=== PATIENT | female | born 1970 | race Caucasian/White ===

== ENCOUNTER 2018-04-15 18:58 | Inpatient (IN) | payer MEDICAID ==
[2018-04-15 19:27] VITALS: BMI 37.2
--- NOTE | 2018-04-15 20:25 | ED PDOC ---
Arrival/HPI - General Historian: Patient - History of Present Illness Time/Duration: Other (3 days) Symptom Onset: Gradual Symptom Course: Worsening <Rhianna Orta - Last Filed: 04/15/18 22:31> <Mc Wise - Last Filed: 04/16/18 05:43> - General Chief Complaint: Psychiatric Evaluation Time Seen by Provider: 04/15/18 19:40 - History of Present Illness Narrative History of Present Illness (Text): 04/15/18 20:25 48-year-old female with a history of bipolar disorder presents today with concerns for developing manic episode. Patient states she's noticed pressure speech, lack of sleep. Patient states she's been feeling very on edge. Patient states her doctor 3 years was changed to a new doctor and there's been an adjustment in her medications. Patient states over the past 3 days her symptoms have been drastically worsening. Patient denies suicidal or homicidal ideation. Patient denies chest pain or shortness of breath. Denies fevers or chills. Denies abdominal pain. No other complaints (Rhianna Orta) Past Medical History - Provider Review Nursing Documentation Reviewed: Yes - Travel History Have you recently traveled outside [place] w/in the past 3 mons?: No - Infectious Disease Hx of Infectious Diseases: None - Tetanus Immunization Tetanus Immunization: Unknown - Past Medical History Past Medical History: No Previous - Psychiatric Hx Bipolar Disorder: Yes Hx Depression: No Hx Emotional Abuse: No Hx Physical Abuse: No Hx Substance Use: No - Surgical History Hx Section: Yes Hx Orthopedic Surgery: Yes (left hip as a child) Other/Comment: L knee. fibroids - Anesthesia Hx Anesthesia: Yes Hx Anesthesia Reactions: No Hx Malignant Hyperthermia: No - Suicidal Assessment Feels Threatened In Home Enviroment: No <Rhianna Orta - Last Filed: 04/15/18 22:31> Family/Social History - Physician Review Nursing Documentation Reviewed: Yes Family/Social History: Unknown Family HX Smoking Status: Never Smoked Hx Alcohol Use: Yes Hx Substance Use: No Hx Substance Use Treatment: No <Rhianna Orta - Last Filed: 04/15/18 22:31> Allergies/Home Meds <Rhianna Orta - Last Filed: 04/15/18 22:31> <Mc Wise - Last Filed: 04/16/18 05:43> Allergies/Adverse Reactions: Allergies oxcarbazepine [From Trileptal] Allergy (Verified 04/15/18 19:28) RASH Home Medications: Home Meds Medication Instructions Recorded Confirmed Clonazepam [Klonopin] 1 tab PO QOTHERDAY 04/15/18 04/15/18 Ketorolac Tromethamine [Toradol] 1 tab PO DAILY 04/15/18 04/15/18 Olanzapine [Zyprexa] 1 tab PO DAILY 04/15/18 04/15/18 Review of Systems - Review of Systems Constitutional: Fatigue. absent: Fevers ENT: absent: Sinus Congestion Respiratory: absent: SOB, Cough Cardiovascular: absent: Chest Pain, Palpitations Gastrointestinal: absent: Abdominal Pain, Nausea, Vomiting Genitourinary Female: absent: Dysuria Musculoskeletal: absent: Arthralgias Skin: absent: Rash, Pruritis Neurological: absent: Headache, Dizziness Psychiatric: Anxiety. absent: Depression, Suicidal Ideation <Rhianna Orta - Last Filed: 04/15/18 22:31> Physical Exam Vital Signs Reviewed: Yes Temperature: Afebrile Blood Pressure: Normal Pulse: Regular Respiratory Rate: Normal Appearance: Positive for: Well-Appearing, Non-Toxic, Comfortable Pain Distress: None Mental Status: Positive for: Alert and Oriented X 3 - Systems Exam Head: Present: Atraumatic Mouth: Present: Moist Mucous Membranes Neck: Present: Normal Range of Motion Respiratory/Chest: Present: Clear to Auscultation, Good Air Exchange. No: Respiratory Distress, Accessory Muscle Use Cardiovascular: Present: Regular Rate and Rhythm, Normal S1, S2. No: Murmurs Abdomen: No: Tenderness, Distention, Peritoneal Signs, Rebound, Guarding Upper Extremity: Present: Normal ROM Lower Extremity: Present: Normal ROM Neurological: Present: GCS=15, Speech Normal Skin: Present: Warm, Dry, Normal Color. No: Rashes Psychiatric: Present: Alert, Oriented x 3 <Rhianna Orta - Last Filed: 04/15/18 22:31> Vital Signs Temp Pulse Resp BP Pulse Ox 04/16/18 04:56 78 17 128/78 100 04/16/18 00:35 81 17 138/70 100 04/15/18 18:59 98.7 F 71 18 117/72 97 Medical Decision Making <Rhianna Orta - Last Filed: 04/15/18 22:31> <Mc Wise - Last Filed: 04/16/18 05:43> ED Course and Treatment: 04/15/18 20:27 Patient is nontoxic well-appearing in no distress vital signs are stable. CBC WNL CMP WNL Tylenol WNL Salicylate WNL Alcohol level WNL Urine drug screen wnl UA; trace leukocytes cxr: wnl ekg: Normal sinus rhythm at 76 bpm normal axis normal intervals no ST elevations pt is medically cleared for PES evaluation Patient was seen and evaluated by PES screener: Patient was cleared psychiatrically for discharge Patient with infection in the urine will place the patient on Keflex. Advised follow-up with primary care physician and psychologist/psychiatrist within the next 2 days. Advised to return if symptoms worsen or persist or if new concerning symptoms develop Patient verbalizes understanding of discharge instructions and need for immediate followup. all aspects of this case were discussed the attending of record. impression: Bipolar disorder, urinary tract infection Follow-up with the primary care physician within the next 2 days Follow-up with the [facility] Keflex 1 capsule twice daily 7 days Return immediately if symptoms worsen persist or if new concerning symptoms develop 04/15/18 21:59 pt IS NOW REFUSING TO LEAVE THE ER; pt states she doesnt feel safe going home and doesnt trust herself. case was again discussed with the PES block and case maker; pt will remain in ER and will have a face to face with dr. domingo in the morning. pt given po keflex and po klonopin in er. 04/16/18 02:00 case signed out to dr. wise pending Dr. domingo evaluation. (Rhianna Orta) 04/16/18 07:[address] Bautista, pending face to face evaluation with Dr. Domingo later this morning and disposition. (Mc Wise) - Lab Interpretations Lab Results: 04/15/18 20:20 04/15/18 20:20 Lab Results 04/15/18 20:40: Urine Opiates Screen Negative, Urine Methadone Screen Negative, Ur Barbiturates Screen Negative, Ur Phencyclidine Scrn Negative, Ur Amphetamines Screen Negative, U Benzodiazepines Scrn Negative, U Oth Cocaine Metabols Negative, U Cannabinoids Screen Negative 04/15/18 20:40: Urine Color Yellow, Urine Appearance Clear, Urine pH 6.5, Ur Specific [place] 1.010, Urine Protein Negative, Urine Glucose (UA) Negative, Urine Ketones Negative, Urine Blood Negative, Urine Nitrate Negative, Urine Bilirubin Negative, Urine Urobilinogen 0.2, Ur Leukocyte Esterase Trace H, Urine RBC 0 - 2, Urine WBC 1 - 3, Ur Epithelial Cells 4 - 5, Urine Bacteria Small 04/15/18 20:20: Alcohol, Quantitative < 10 04/15/18 20:20: Salicylates < 1 L, Acetaminophen < 10.0 L 04/15/18 20:20: Sodium 144, Potassium 4.1, Chloride 105, Carbon Dioxide 25, Anion Gap 18, BUN 15, Creatinine 0.7, Est GFR ( Amer) > 60, Est GFR (Non- Af Amer) > 60, Random Glucose 89, Calcium 9.7, Total Bilirubin 0.1 L, AST 27, ALT 53, Alkaline Phosphatase 145 H, Total Protein 7.9, Albumin 4.7, Globulin 3.2 , Albumin/Globulin Ratio 1.5 04/15/18 20:20: WBC 9.0, RBC 5.59, Hgb 12.7, Hct 39.5, MCV 70.7 L, MCH 22.7 L, MCHC 32.2, RDW 20.5 H, Plt Count 402, MPV 9.1, Gran % 67.5, Lymph % (Auto) 24.0 , [place] % (Auto) 5.0, Eos % (Auto) 3.1, Baso % (Auto) 0.4, Gran # 6.06, Lymph # ( Auto) 2.2, [place] # (Auto) 0.5, Eos # (Auto) 0.3, Baso # (Auto) 0.04 - RAD Interpretation Radiology Orders: 04/15/18 20:28 CHEST PORTABLE [RAD] Stat - Medication Orders Current Medication Orders: Discontinued Medications Cephalexin Monohydrate (Keflex) 500 mg PO STAT STA PRN Reason: Protocol Stop: 04/15/18 21:59 Last Admin: 04/15/18 22:11 Dose: 500 mg Clonazepam (Klonopin) 0.5 mg PO STAT STA PRN Reason: Protocol Stop: 04/15/18 21:59 Last Admin: 04/15/18 22:10 Dose: 0.5 mg - PA / CONTROL SYSTEMS DRAFTING OFFICER / Resident Statement / has reviewed & agrees with the documentation as recorded. / has examined the patient and agrees with the treatment plan. <Mc Wise - Last Filed: 04/16/18 05:43> Disposition/Present on Arrival - Present on Arrival Any Indicators Present on Arrival: No History of DVT/PE: No History of Uncontrolled Diabetes: No Urinary Catheter: No History of Decub. Ulcer: No History Surgical Site Infection Following: None - Disposition Have Diagnosis and Disposition been Completed?: Yes Patient Plan: Discharge <Rhianna Orta - Last Filed: 04/15/18 22:31> - Present on Arrival Any Indicators Present on Arrival: No - Disposition Have Diagnosis and Disposition been Completed?: No Disposition Time: 07:00 <Mc Wise - Last Filed: 04/16/18 05:43> - Disposition Diagnosis: Urinary tract infection, Bipolar disorder Patient Problems: Current Active Problems Problem Status Onset Bipolar disorder Acute Urinary tract infection Acute Condition: GOOD Discharge Instructions (ExitCare): Asymptomatic Bacteriuria, Bipolar Disorder ( DC) Additional Instructions: Follow-up with the primary care physician within the next 2 days Follow-up with the [facility] Keflex 1 capsule twice daily 7 days Return immediately if symptoms worsen persist or if new concerning symptoms develop Prescriptions: Cephalexin [Keflex] 500 mg PO BID #14 capsule Referrals: Chelly Bhatt MD [Primary Care Provider] - Follow up with primary [facility] [place] - Follow up with primary [facility] [Outside] - Follow up with primary Forms: [employer] (Persian)
[2018-04-15 20:51] LABS: BASO # 0.04 K/mm3 (0.0-2.0); BASO % 0.4 % (0.0-3.0); EOS # 0.3 (0.0-0.7); EOS % 3.1 % (1.5-5.0); GRAN # 6.06 (1.4-6.5); GRAN % 67.5 % (50.0-68.0); HEMOGLOBIN 12.7 g/dL (12.0-16.0); LYMPH # 2.2 (1.2-3.4); MEAN CELL VOLUME 70.7 fl (80.0-105.0); MEAN CORPUSCULAR HEMOGLOBIN 22.7 pg (25.0-35.0); MEAN CORPUSCULAR HGB CONC 32.2 g/dl (31.0-37.0); MEAN PLATELET VOLUME 9.1 fl (7.0-11.0); MONO # 0.5 (0.1-0.6); RBC 5.59 10^6/uL (3.5-6.1); RED CELL DISTRIBUTION WIDTH 20.5 % (11.5-14.5)
[2018-04-15 20:51] LABS: PH,URINE 6.5 (4.7-8.0); URINE APPEARANCE CLEAR (CLEAR); URINE BILIRUBIN NEGATIVE (NEGATIVE); URINE BLOOD NEGATIVE (NEGATIVE); URINE COLOR YELLOW (YELLOW); URINE GLUCOSE (UA) NEGATIVE (NEGATIVE); URINE LEUKOCYTE ESTERASE TRACE Leu/uL (NEGATIVE); URINE PROTEIN NEGATIVE mg/dL (<30 mg/dL); URINE UROBILINOGEN 0.2 E.U./dL (<1 E.U./dL)
[2018-04-15 20:58] LABS: URINE RBC 0 - 2 /hpf (0-2)
[2018-04-15 20:59] LABS: URINE BACTERIA SMALL (NEG)
[2018-04-15 21:01] LABS: ALB/GLOB RATIO 1.5 (1.1-1.8); ALBUMIN 4.7 g/dL (3.0-4.8); ALT/SGPT 53 U/L (7-56); AST/SGOT 27 U/L (14-36); BLOOD UREA NITROGEN 15 mg/dL (7-21); CALCIUM 9.7 mg/dL (8.4-10.5); GFR AFRICAN-AMERICAN > 60; GFR NON-AFRICAN AMERICAN > 60
[2018-04-15 21:02] LABS: ACETAMINOPHEN < 10.0 ug/ml (10.0-20.0); SALICYLATE < 1 mg/dL (2.0-20.0)
[2018-04-15 21:15] LABS: BARBITURATES, UR NEGATIVE (NEGATIVE); BENZODIAZEPINES, UR NEGATIVE (NEGATIVE); OPIATES, UR NEGATIVE (NEGATIVE); PHENCYCLIDINE, UR NEGATIVE (NEGATIVE)
[2018-04-16 06:58] VITALS: O2SAT 98
--- NOTE | 2018-04-16 07:15 | ED PDOC ---
Physical Exam - Physical Exam Narrative Physical Exam (Text): 04/16/18 07:15 You were treated in the ED today with history of bipolar disorder for concern of developing manic episode otherwise without any nausea/vomiting/headache/ dizziness/difficulty breathing/chest pain/abdomen pain/numbness/tingling/loss of limb function/pain with urination or any other complaints. At bedside, you were breathing easily and with no new complaints. Case endorsed to me by Dr. Chase for pending evaluation by Dr. Stewart and final disposition. Vital Signs Reviewed: Yes Vital Signs Temp Pulse Resp BP Pulse Ox 04/16/18 06:57 82 17 130/72 98 04/16/18 04:56 78 17 128/78 100 04/16/18 00:35 81 17 138/70 100 04/15/18 18:59 98.7 F 71 18 117/72 97 Temperature: Afebrile Blood Pressure: Normal Pulse: Regular Respiratory Rate: Normal Appearance: Positive for: Well-Appearing, Non-Toxic, Comfortable Pain Distress: None Mental Status: Positive for: Alert and Oriented X 3 - Systems Exam Head: Present: Atraumatic, Normocephalic Pupils: Present: PERRL Extroacular Muscles: Present: EOMI Conjunctiva: Present: Normal Respiratory/Chest: Present: Clear to Auscultation, Good Air Exchange. No: Respiratory Distress, Accessory Muscle Use Cardiovascular: Present: Regular Rate and Rhythm, Normal S1, S2. No: Murmurs Abdomen: No: Tenderness, Distention, Peritoneal Signs Back: Present: Normal Inspection Upper Extremity: Present: Normal Inspection. No: Cyanosis, Edema Lower Extremity: Present: Normal Inspection. No: Edema Neurological: Present: GCS=15, CN II-XII Intact, Speech Normal Skin: Present: Warm, Dry, Normal Color. No: Rashes Psychiatric: Present: Alert, Oriented x 3 Medical Decision Making ED Course and Treatment: 04/16/18 07:19 You were treated in the ED today with history of bipolar disorder for concern of developing manic episode otherwise without any nausea/vomiting/headache/ dizziness/difficulty breathing/chest pain/abdomen pain/numbness/tingling/loss of limb function/pain with urination or any other complaints. You were otherwise breathing easily, smiling at bedside, good strength/sensation, walking easily, clear lungs, no abdomen tenderness, your vision was such no fever temp 98.7, stable heart rate 82, stable breathing rate 17, excellent oxygen level 98% room air, normal blood pressure 130/72 , you have blood tests no infection count 9, stable blood level hemoglobin 12/platelets 402, stable chemistry, mildly elevated alkaline phosphatase 145, urine test positive for leukocytes and will treat with Keflex, radiology no acute findigns, ECG normal sinus rhythm, observation done in the ED with stability and d/w Dr. Stewart who stated pt with prior psychiatric admissions and will admit at this time. 04/16/18 07:39 04/16/18 07:41 Reassessment Condition: Re-examined, Improved - Lab Interpretations Lab Results: 04/15/18 20:20 04/15/18 20:20 Lab Results 04/15/18 20:40: Urine Opiates Screen Negative, Urine Methadone Screen Negative, Ur Barbiturates Screen Negative, Ur Phencyclidine Scrn Negative, Ur Amphetamines Screen Negative, U Benzodiazepines Scrn Negative, U Oth Cocaine Metabols Negative, U Cannabinoids Screen Negative 04/15/18 20:40: Urine Color Yellow, Urine Appearance Clear, Urine pH 6.5, Ur Specific [place] 1.010, Urine Protein Negative, Urine Glucose (UA) Negative, Urine Ketones Negative, Urine Blood Negative, Urine Nitrate Negative, Urine Bilirubin Negative, Urine Urobilinogen 0.2, Ur Leukocyte Esterase Trace H, Urine RBC 0 - 2, Urine WBC 1 - 3, Ur Epithelial Cells 4 - 5, Urine Bacteria Small 04/15/18 20:20: Alcohol, Quantitative < 10 04/15/18 20:20: Salicylates < 1 L, Acetaminophen < 10.0 L 04/15/18 20:20: Sodium 144, Potassium 4.1, Chloride 105, Carbon Dioxide 25, Anion Gap 18, BUN 15, Creatinine 0.7, Est GFR ( Amer) > 60, Est GFR (Non- Af Amer) > 60, Random Glucose 89, Calcium 9.7, Total Bilirubin 0.1 L, AST 27, ALT 53, Alkaline Phosphatase 145 H, Total Protein 7.9, Albumin 4.7, Globulin 3.2 , Albumin/Globulin Ratio 1.5 04/15/18 20:20: WBC 9.0, RBC 5.59, Hgb 12.7, Hct 39.5, MCV 70.7 L, MCH 22.7 L, MCHC 32.2, RDW 20.5 H, Plt Count 402, MPV 9.1, Gran % 67.5, Lymph % (Auto) 24.0 , [place] % (Auto) 5.0, Eos % (Auto) 3.1, Baso % (Auto) 0.4, Gran # 6.06, Lymph # ( Auto) 2.2, [place] # (Auto) 0.5, Eos # (Auto) 0.3, Baso # (Auto) 0.04 I have reviewed the lab results: Yes - RAD Interpretation Radiology Orders: 04/15/18 20:28 CHEST PORTABLE [RAD] Stat Refinery Operator Helper Crude Unit: ED Physician (cxr no acute) - EKG Interpretation Interpreted by ED Physician: Yes (NSR) Type: 12 lead EKG - Medication Orders Current Medication Orders: Discontinued Medications Cephalexin Monohydrate (Keflex) 500 mg PO STAT STA PRN Reason: Protocol Stop: 04/15/18 21:59 Last Admin: 04/15/18 22:11 Dose: 500 mg Clonazepam (Klonopin) 0.5 mg PO STAT STA PRN Reason: Protocol Stop: 04/15/18 21:59 Last Admin: 04/15/18 22:10 Dose: 0.5 mg - Scribe Statement The provider has reviewed the documentation as recorded by the Joseibsheila Chappell. All medical record entries made by the Pastora were at my direction and personally dictated by me. I have reviewed the chart and agree that the record accurately reflects my personal performance of the history, physical exam, medical decision making, and the department course for this patient. I have also personally directed, reviewed, and agree with the discharge instructions and disposition. Disposition/Present on Arrival - Present on Arrival Any Indicators Present on Arrival: No History of DVT/PE: No History of Uncontrolled Diabetes: No Urinary Catheter: No History of Decub. Ulcer: No History Surgical Site Infection Following: None - Disposition Have Diagnosis and Disposition been Completed?: Yes Diagnosis: Urinary tract infection, Bipolar disorder Disposition: HOSPITALIZED Disposition Time: 07:43 Patient Plan: Admission Patient Problems: Current Active Problems Problem Status Onset Urinary tract infection Acute Bipolar disorder Acute Condition: GOOD Discharge Instructions (ExitCare): Asymptomatic Bacteriuria, Bipolar Disorder ( DC) Additional Instructions: Follow-up with the primary care physician within the next 2 days Follow-up with the [facility] Keflex 1 capsule twice daily 7 days Return immediately if symptoms worsen persist or if new concerning symptoms develop Prescriptions: Cephalexin [Keflex] 500 mg PO BID #14 capsule [facility] - [place] up with primary [facility] [place] [facility] [place] - Follow up with primary Chelly Bhatt MD [Primary Care Provider] - Follow up with primary Forms: [employer] (Amharic)
--- NOTE | 2018-04-16 09:28 | RAD ---
HISTORY: pes eval COMPARISON: No prior. FINDINGS: LUNGS: No active pulmonary disease. PLEURA: No significant pleural effusion identified, no pneumothorax apparent. CARDIOVASCULAR: Appears enlarged. OSSEOUS STRUCTURES: No significant abnormalities. VISUALIZED UPPER ABDOMEN: Normal. OTHER FINDINGS: None. IMPRESSION: No active disease.
--- NOTE | 2018-04-16 09:43 | CARD ---
APPROVED REPORT EKG Measurement Heart [id number] <Conclusion> Normal sinus rhythm Normal ECG
[2018-04-16] MEDS ORDERED: Alum-Mag Hydrox-Simethicone Susp (30 mL) PO PRN (10:32)
[2018-04-16] MEDS ORDERED: Magnesium Hydroxide Susp 30 ml UD PO PRN (10:32)
--- NOTE | 2018-04-16 13:52 | PCM.BM ---
<Sandrita Kemp - Last Filed: 04/16/18 13:46> Treatment Plan Problems - Problems identified on initial assessmt ALTERED SLEEP PATTERN Date Initiated: 04/16/18 Time Initiated: 14:00 Assessment reference: NA Status: Active Priority: 1 INEFFECTIVE COPING SKILLS Date Initiated: 04/16/18 (R/T SX OF BIPOLAR) Time Initiated: 14:00 Assessment reference: NA Status: Active Priority: 2 ALTERED THOUGHT Date Initiated: 04/16/18 (RACING THOUGHTS AND OVERPRODUCTIVE SPEECH ) Time Initiated: 14:00 Assessment reference: NA Status: Active Priority: 3 Treatment assets and liabiliti Patient Assests: cooperative, educated, insightful, motivated, ADL independent, physically healthy, good past tx response, cognitively intact Patient Liabilities: financial problems - Milieu Protocol Maintain good personal hygiene: daily Encourage regular showers, daily Remind patient to perform daily oral care, daily Assist patient to perform ADL's Maintain personal safety: every shift Educate patient to report safety concerns to staff, every shift Monitor environment for contraband/sharps Medication safety: Monitor for expected outcome, potential side effects: every shift, Assess barriers to learning: every shift, Assess readiness for medication education: every shift Discharge/Continuing Care - Education Needs Education Needs: Patient Medication, Patient Diagnosis/Disease Process, Patient Coping Skills, Patient Community resources, Patient Activities of Daily Living, Patient Pain, Patient Nutrition, Patient Health Practices/Safety, Patient Personal Hygiene/Grooming, Patient Aftercare Safety Plan - Discharge Discharge Criteria: Tolerates medication w/o severe side effects, Normal sleep pattern, Ability to care for self, Reduction of target symptoms Discharge to:: Home <Reema Persaud - Last Filed: 04/17/18 09:11> - Diagnosis (1) Bipolar disorder Status: Acute Interventions: 04/17/18 09:11 Psychoeducation Psychopharmacology/adjustment of medications as needed/ monitoring possible side effects Monitor blood level of mood stabilizers Evaluate pt on daily basis Compliance with medications and follow up appointments Suicide and homicide risk assessment and prevention, coping strategies, safety plan Relapse prevention Reduction of symptoms Improve functional status Family involvement As outpatient: cognitive behavioral therapy <Ingris Flores - Last Filed: 04/18/18 15:24> Family Contact Family involvement: Family/SO is involved Family contact: Patient agrees to contact Family contact name: Brando Hernandez(ex-) Family contacted how many times per week?: 2 - Outside Agency [facility] Care involvment: Information-sharing Agency contact name: [facility] Agency contact number: [phone]
[2018-04-17 08:04] LABS: HDL CHOLESTEROL 55 mg/dL (29-60)
[2018-04-17 08:15] LABS: LDL CHOLESTEROL 103 mg/dL (0-129)
[2018-04-17 08:20] LABS: FREE T4 1.26 ng/dL (0.78-2.19)
--- NOTE | 2018-04-17 09:15 | CON ---
DATE: 04/16/2018 HISTORY OF PRESENT ILLNESS: The patient is a 48-year-old [place]-born female with a history of bipolar 1 manic disorder, approximately five prior admissions including one involuntary admission when she was 28 years old for manic episode, one suicide attempt as a teenager, current outpatient treatment with Dr. Bravo at [facility] and reportedly compliant with Zyprexa and Klonopin, presented to the ER on 04/15/2018 with concerns about developing manic episodes. I met with the patient at the bedside in the ER and the patient does appear to be anxious with pressured speech and over-inclusive and sometimes tangential thought process. The patient indicates that she does have a history of manic episodes in the past and has had multiple hospitalizations for them and she is very diligent about being compliant with her medication because she is the sole caregiver for 9-year-old daughter, Marisel. The patient has been doing very well on her psychiatric medication and her last hospitalization was 3 years ago. She has been doing so well that her new psychiatrist recommended that Klonopin be reduced to every other day from once daily. The patient continued with this regimen as well as with Zyprexa. However, the patient did note that in the last 3 days, she has developed an increase in manic symptoms including talking more, not sleeping, feeling anxious, spending more money, and having more energy. The patient brought herself to the ER so that she could be helped prior to developing a full-blown manic episode. The patient has a conscientious effort to be as responsible as possible so that she may continue optimally caring for her 9-year-old daughter. Presently, her thought process is fairly coherent as otherwise noted. She does have some increased, overproductive speech and over-inclusive thought process. She is not hallucinating. She denies any hallucinations. She denies any major stressors that could have precipitated the onset of these symptoms except for the recent decrease of Klonopin from once daily to once every other day. She has been in fair control in the ER while she is waiting for evaluation and there were no behavioral issues. Unfortunately, the patient does not know her current psychiatric medication dose. PSYCHIATRIC HISTORY: As noted, the patient reports having had at least five prior psychiatrist hospitalizations, her first one was when she was 28 years old. The patient reports that she was involuntary committed for hallucinations, delusions, she was just manic. The patient reports that her most recent hospitalization was about 3 years ago while she was on vacation in [place], [place]. She was "feeling too good." She went to the ER for help and was transferred to [place], [place] where she was hospitalized for 1 week for stabilization. The patient currently follows up with Dr. Bravo at [facility] and most recent followup was [address] Bravo recommended that the patient change the frequency of her Klonopin, some unknown dose daily to every other day and the patient to continue with Zyprexa nightly. The patient then followed up with a new outpatient provider a month ago at [facility] and Klonopin was recommended to be only taking p.r.n.; however, the patient was taking it every other day as she feared completely coming off of this medication. The patient reports one suicide attempt when she cut herself in high school. SOCIAL HISTORY: The patient was born and raised in [facility] up until she was 4 years old and then in 1980, she moved to [facility]. The patient graduated high school and college at [employer], [employer] in [place] [facility] [place] and then moved to [place] to be with her . This occurred about 9 to 10 years ago. The patient was for 5 years and then 5 years ago. The patient lives with her 9-year-old daughter, Marisel, and she is the sole caregiver for her daughter. The patient reports that she is unemployed because she cannot find care for her daughter during the day while she is working. The patient reports having a prior history of excessive alcohol use, 1 to 2 glasses per day, ended up being 3 to 5 glasses per day and the patient stopped drinking on her own on 07/25/2017 and has not had any alcohol since then. The patient reports using marijuana about 2 to 3 times with her boyfriend about 4 years ago. She denies any other drug use. Presently, her daughter is staying with her mother who traveled from [place] to take care of her 9-year-old daughter. Vital signs and labs were reviewed by this provider. Of note, toxicology was negative for all drugs. BAL was less than 10, otherwise there were no major derangements in her laboratory values. IMPRESSION: Bipolar 1, onset of manic episode, severe, as well as anxiety disorder, likely generalized anxiety disorder. RECOMMENDATIONS: The patient is into the hospital voluntarily and this provider will restart Zyprexa at 5 mg at bedtime and 2.5 mg a.m. as well as Klonopin 0.5 a.m. and at bedtime. I started these medications at these conservative doses as the patient does not know what her current medication dose is. Wendy Stewart MD
--- NOTE | 2018-04-17 12:52 | CP.PCM.CON ---
Past Patient History - Infectious Disease Hx of Infectious Diseases: None - Tetanus Immunizations Tetanus Immunization: Unknown - Past Social History Smoking Status: Never Smoked - CARDIAC Hx Cardiac Disorders: No Hx Hypertension: No - PULMONARY Hx Tuberculosis: No - NEUROLOGICAL HX Cerebrovascular Accident: No Hx Seizures: No - HEMATOLOGICAL/ONCOLOGICAL Hx Cancer: No Hx Human Immunodeficiency Virus (HIV): No - GENITOURINARY/GYNECOLOGICAL Hx Sexually Transmitted Disorders: No - PSYCHIATRIC Hx Substance Use: No - SURGICAL HISTORY Hx Surgeries: Yes Hx Section: Yes Hx Orthopedic Surgery: Yes (left hip as a child) Other/Comment: L knee. fibroids - ANESTHESIA Hx Anesthesia: Yes Hx Anesthesia Reactions: No Hx Malignant Hyperthermia: No Meds Home Medications: Home Medication List Medication Instructions Recorded Confirmed Type Cephalexin [Keflex] 500 mg PO BID #14 capsule 04/15/18 Rx Allergies/Adverse Reactions: Allergies Allergy/AdvReac Type Severity Reaction Status Date / Time oxcarbazepine Allergy Intermediate RASH Verified 04/17/18 09:31 [From Trileptal] - Medications Medications: Current Medications Acetaminophen (Tylenol 325mg Tab) 650 mg PO Q4 PRN PRN Reason: Pain, moderate (4-7) Last Admin: 04/16/18 21:11 Dose: 650 mg Al Hydrox/Mg Hydrox/Simethicone (Maalox Plus 30 Ml) 30 ml PO DAILY PRN PRN Reason: Upset Stomach Aripiprazole (Abilify) 5 mg PO DAILY KAYE Clonazepam (Klonopin) 0.5 mg PO AMHS KAYE PRN Reason: Protocol Last Admin: 04/17/18 09:10 Dose: 0.5 mg Magnesium Hydroxide (Milk Of Magnesia) 30 ml PO DAILY PRN PRN Reason: Constipation Olanzapine (Zyprexa) 5 mg PO HS KAYE PRN Reason: Protocol Last Admin: 04/16/18 21:10 Dose: 5 mg Zaleplon (Sonata) 5 mg PO HS KAYE Zaleplon (Sonata) 5 mg PO HS PRN PRN Reason: Insomnia Results - Vital Signs Recent Vital Signs: Last Vital Signs Temp 98.2 F 04/17/18 07:18 Pulse 75 04/17/18 07:18 Resp 20 04/17/18 07:18 BP 125/72 04/17/18 07:18 Pulse Ox 98 04/16/18 08:03 - Labs Result Diagrams: 04/15/18 20:20 04/15/18 20:20 Labs: Laboratory Results - last 24 hr 04/17/18 04/17/18 07:30 07:30 Triglycerides 105 Cholesterol 188 LDL Cholesterol Direct 103 HDL Cholesterol 55 Free T4 1.26 TSH 3rd Generation 2.77
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
--- NOTE | 2018-04-17 14:46 | CP.PCM.CON ---
Addendum entered and electronically signed by Marquis Bose DO 04/17/18 14:57: 2. Bipolar Disorder -management per psychiatry Original Note: <Marquis Bose - Last Filed: 04/17/18 14:53> History of Present Illness - History of Present Illness History of Present Illness: 48 year old female with past medical history of fibroids, bipolar disorder consulted by psychiatry. Patient complaining of hip pain located on the left. She states she has had hip surgery as a child to treat short leg syndrome. States she had recently had imagine done of her hip and back. Patient says otherwise she is doing well. Denies chest pain, shortness of breath, fever, chills, abdominal pain, nausea, vomiting or any other complaints at this time. PMH: bipolar, fibroids PSH: hip surgery as child, uterine fibroid removals Allergies: oxcarbazepine Meds: Per MAR Social: denies alcohol, tobacco, or illicit drug use Family: non contributory Review of Systems - Constitutional Constitutional: absent: Chills, Fever - Cardiovascular Cardiovascular: absent: Chest Pain, Dyspnea, Palpitations - Respiratory Respiratory: absent: Cough, Dyspnea, Wheezing - Gastrointestinal Gastrointestinal: absent: Abdominal Pain, Nausea, Vomiting - Genitourinary Genitourinary: absent: Difficulty Urinating - Musculoskeletal Musculoskeletal: Limited Range of Motion, Myalgias. absent: Neck Pain, Numbness - Neurological Neurological: absent: Focal Weakness, Syncope, Tingling, Weakness Past Patient History - Infectious Disease Hx of Infectious Diseases: None - Tetanus Immunizations Tetanus Immunization: Unknown - Past Social History Smoking Status: Never Smoked - CARDIAC Hx Cardiac Disorders: No Hx Hypertension: No - PULMONARY Hx Tuberculosis: No - NEUROLOGICAL HX Cerebrovascular Accident: No Hx Seizures: No - HEMATOLOGICAL/ONCOLOGICAL Hx Cancer: No Hx Human Immunodeficiency Virus (HIV): No - GENITOURINARY/GYNECOLOGICAL Hx Sexually Transmitted Disorders: No - PSYCHIATRIC Hx Substance Use: No - SURGICAL HISTORY Hx Surgeries: Yes Hx Section: Yes Hx Orthopedic Surgery: Yes (left hip as a child) Other/Comment: L knee. fibroids - ANESTHESIA Hx Anesthesia: Yes Hx Anesthesia Reactions: No Hx Malignant Hyperthermia: No Meds Home Medications: Home Medication List Medication Instructions Recorded Confirmed Type Cephalexin [Keflex] 500 mg PO BID #14 capsule 04/15/18 Rx Allergies/Adverse Reactions: Allergies Allergy/AdvReac Type Severity Reaction Status Date / Time oxcarbazepine Allergy Intermediate RASH Verified 04/17/18 09:31 [From Trileptal] - Medications Medications: Current Medications Acetaminophen (Tylenol 325mg Tab) 650 mg PO Q4 PRN PRN Reason: Pain, moderate (4-7) Last Admin: 04/16/18 21:11 Dose: 650 mg Al Hydrox/Mg Hydrox/Simethicone (Maalox Plus 30 Ml) 30 ml PO DAILY PRN PRN Reason: Upset Stomach Aripiprazole (Abilify) 5 mg PO DAILY KAYE Clonazepam (Klonopin) 0.5 mg PO AMHS KAYE PRN Reason: Protocol Last Admin: 04/17/18 09:10 Dose: 0.5 mg Magnesium Hydroxide (Milk Of Magnesia) 30 ml PO DAILY PRN PRN Reason: Constipation Olanzapine (Zyprexa) 5 mg PO HS KAYE PRN Reason: Protocol Last Admin: 04/16/18 21:10 Dose: 5 mg Zaleplon (Sonata) 5 mg PO HS KAYE Zaleplon (Sonata) 5 mg PO HS PRN PRN Reason: Insomnia Physical Exam - Constitutional Appears: Non-toxic, No Acute Distress - Head Exam Head Exam: ATRAUMATIC, NORMAL INSPECTION, NORMOCEPHALIC - Eye Exam Eye Exam: EOMI, Normal appearance - ENT Exam ENT Exam: Mucous Membranes Moist - Neck Exam Neck exam: Positive for: Normal Inspection - Respiratory Exam Respiratory Exam: Clear to Auscultation Bilateral, NORMAL BREATHING PATTERN - Cardiovascular Exam Cardiovascular Exam: REGULAR RHYTHM, +S1, +S2 - GI/Abdominal Exam GI & Abdominal Exam: Normal Bowel Sounds, Soft. absent: Tenderness - Extremities Exam Extremities exam: Positive for: tenderness, pedal pulses present. Negative for : full ROM, pedal edema - Neurological Exam Neurological exam: Alert, CN II-XII Intact, Oriented x3 Results - Vital Signs Recent Vital Signs: Last Vital Signs Temp 98.2 F 04/17/18 07:18 Pulse 75 04/17/18 07:18 Resp 20 04/17/18 07:18 BP 125/72 04/17/18 07:18 Pulse Ox 98 04/16/18 08:03 - Labs Result Diagrams: 04/15/18 20:20 04/15/18 20:20 Labs: Laboratory Results - last 24 hr 04/17/18 04/17/18 07:30 07:30 Triglycerides 105 Cholesterol 188 LDL Cholesterol Direct 103 HDL Cholesterol 55 Free T4 1.26 TSH 3rd Generation 2.77 Assessment & Plan - Assessment and Plan (Free Text) Assessment: 48 year old female with past medical history of fibroids, bipolar disorder consulted by psychiatry, complaining of hip pain located on the left. Plan: 1. Hip Pain -previous imagine reviewed which was done recently 04/11/18 XR hip unilateral Left: Left Hip: the superior aspect of the hip joint reveals mild narrowing and minimal osteophytosis, no acute fracture or dislocation, the left sacroiliac joint reveals mild to moderate arthrosis. 04/11/18 XR Lumbosacral Spine XR Mild lumbar spondylosis, there is no acute fracture or dislocation. 04/11/18 Sacrum and coccyx XR Impression: WNL -tylenol 650 Q6 PRN for pain -physical therapy -outpatient follow up with orthopedics Patient stable from medicine point of view, please continue management per psyche. <Geraldo Phillips - Last Filed: 04/18/18 16:45> Meds - Medications Medications: Current Medications Acetaminophen (Tylenol 325mg Tab) 650 mg PO Q4 PRN PRN Reason: Pain, moderate (4-7) Last Admin: 04/17/18 21:26 Dose: 650 mg Al Hydrox/Mg Hydrox/Simethicone (Maalox Plus 30 Ml) 30 ml PO DAILY PRN PRN Reason: Upset Stomach Aripiprazole (Abilify) 10 mg PO DAILY KAYE Aripiprazole (Abilify) 5 mg PO HS KAYE Clonazepam (Klonopin) 0.5 mg PO AMHS KAYE PRN Reason: Protocol Last Admin: 04/18/18 09:11 Dose: 0.5 mg Magnesium Hydroxide (Milk Of Magnesia) 30 ml PO DAILY PRN PRN Reason: Constipation Zaleplon (Sonata) 5 mg PO HS KAYE Last Admin: 04/17/18 21:25 Dose: 5 mg Zaleplon (Sonata) 5 mg PO HS PRN PRN Reason: Insomnia Results - Vital Signs Recent Vital Signs: Last Vital Signs Temp 98.1 F 04/18/18 07:00 Pulse 81 04/18/18 16:00 Resp 20 04/18/18 07:00 BP 121/74 04/18/18 16:00 Pulse Ox 98 04/16/18 08:03 - Labs Result Diagrams: 04/15/18 20:20 04/15/18 20:20 Labs: Laboratory Results - last 24 hr 04/17/18 07:30 RPR Nonreactive Attending/Attestation - Attestation I have personally seen and examined this patient.: Yes I have fully participated in the care of the patient.: Yes I have reviewed all pertinent clinical information: Yes Notes (Text): 04/18/18 16:45 Medical record note made by the resident after discussion with my direction and input after the patient was personally seen and examined by me. I have reviewed the chart and agree that the record accurately reflects by personal performance of the history, physical exam, data review, and medical decision-making, in the course for the patient. I have also personally directed the plan of care.
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
--- NOTE | 2018-04-21 10:52 | PCM.PYCHPN ---
Psychiatric Progress Note - Psychiatric Progress Note Patient seen today, length of contact: 25 min Patient Chief Complaint: "I am better" Problems Identified/Issues Discussed: I reviewed recent notes and met with patient in the hallway. I am familiar with patient from my interview with her in the ER last Monday. She is presenting much calmer, speech is not pressured and she can express herself in a more goal directed manner. Her eye contact is good and she remains well-oriented to month , year, location and circumstances. Subjectively patient reports feeling better , she is less anxious and her thoughts are less racy. Patient is tolerating the medication changes well and denies any new side effects, discomfort or pain. She slept better last night with combination of ambien, klonopin and trazodone. There were no behavioral issues. Diagnostic Results: Bipolar I Ruby Medication Change: Yes (abilify increased, ambien increased, trazodone increased ) Medical Record Reviewed: Yes Mental Status Examination - Cognitive Function Orientation: Person, Place Memory: Intact Attention: Poor Concentration: Poor Association: WNL Fund of Knowledge: WNL - Mood Mood: Anxious - Affect Affect: Broad - Formal Thought Process Formal Thought Process: Circumstantial (improving) - Suicidal Ideation Suicidal Ideation: No - Homicidal Ideation Homicidal Ideation: No Goal/Treatment Plan - Goal/Treatment Plan Need for Continued Stay: Remain at risks for inpatient hospitalization, Severe depression anxiety, Discharge may exacerbated symptoms, Severe functional impairment Progress Toward Problem(s) and Goals/Treatment Plan: * c/w current tx and plan * No new weekend labs thus far * Vitals reviewed and noted below: Selected Entries 04/21/18 07:15 Temperature 97.8 F Pulse Rate 80 Respiratory 19 Rate Blood Pressure 118/62 Estimated Date of D/C: 04/23/18
--- NOTE | 2018-04-22 17:51 | PCM.PYCHPN ---
Psychiatric Progress Note - Psychiatric Progress Note Patient seen today, length of contact: 25 min Patient Chief Complaint: "I am better" Problems Identified/Issues Discussed: I reviewed recent notes and met with patient in the dayroom. I am familiar with patient from my interview with her in the ER last Monday and a follow up interview yesterday. She is presenting much calmer, speech is not pressured (it is rapid which may be related to anxiety/cultural) and she can express herself in a more goal directed manner. Her eye contact is good and she remains well- oriented to month, year, location and circumstances. Subjectively patient reports feeling better, she is less anxious and her thoughts are less racy. Patient is tolerating the medication changes well and denies any new side effects, discomfort or pain. She indicates that she slept well last night full 8 hours with combination of ambien, klonopin and trazodone. However later in the conversation patient admits to multiple night-time awakenings. Thoughts remain just a little scattered. She is not manic but still appears a little elevated. There were no behavioral issues over the weekend. Patient indicates that she is feeling more prepared for eventual discharge. Diagnostic Results: Bipolar I Ruby Medication Change: Yes (increased abilify to 10 mg AM and 15 mg PM) Medical Record Reviewed: Yes Mental Status Examination - Cognitive Function Orientation: Person, Place Memory: Intact Attention: Poor Concentration: Poor Association: WNL Fund of Knowledge: WNL - Mood Mood: Anxious - Affect Affect: Broad - Formal Thought Process Formal Thought Process: Circumstantial (improving) - Suicidal Ideation Suicidal Ideation: No - Homicidal Ideation Homicidal Ideation: No Goal/Treatment Plan - Goal/Treatment Plan Need for Continued Stay: Remain at risks for inpatient hospitalization, Severe depression anxiety, Discharge may exacerbated symptoms, Severe functional impairment Progress Toward Problem(s) and Goals/Treatment Plan: * c/w current tx and plan * Increase abilify to 10 mg AM and 15 mg PM as patient still appears a little elevated (though improving) * No new weekend labs * Vitals reviewed and noted below: Selected Entries 04/22/18 07:00 Temperature 97.3 F L Pulse Rate 84 Respiratory 19 Rate Blood Pressure 153/75 H Estimated Date of D/C: 04/23/18
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
[2018-04-24 06:43] VITALS: BP 119/70; PULSE 83; RESP 18; TEMP 97.4
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
== END 2018-04-24 14:29 | disposition home or self-care (01) | DRG 430 ==
LOC: ED 18:58 → ERH 04-16 07:43 → PSYC 04-16 08:14
PROVIDERS: ADMIT Psychiatry & Neurology Psychiatry; ATTEND Psychiatry & Neurology Psychiatry
DX: F31.9 Bipolar disorder, unspecified (principal); N39.0 Urinary tract infection, site not specified; E66.9 Obesity, unspecified; F22 Delusional disorders; F41.1 Generalized anxiety disorder; G47.00 Insomnia, unspecified; M47.816 Spondylosis without myelopathy or radiculopathy, lumbar region; Z62.810 Personal history of physical and sexual abuse in childhood; Z91.5 Personal history of self-harm

== ENCOUNTER 2018-12-27 09:24 | Inpatient (IN) | payer MEDICAID ==
[2018-12-27 10:05] VITALS: BMI 71.8
--- NOTE | 2018-12-27 10:06 | ED PDOC ---
Arrival/HPI - General Time Seen by Provider: 12/27/18 09:36 Historian: Patient - History of Present Illness Narrative History of Present Illness (Text): 12/27/18 10:03 48 year old female, with past psychiatric history of bipolar disorder, presents to the ED for evaluation of possible manic episode since past 4 days. Patient informs insomnia, increased lethargy and increased socialization for the past 4 days, consistent with her past episodes of bipolar disorder. Patient informs compliance with her medication. Patient denies any other somatic complaints. Patient denies any fevers, chills, headache, dizziness, chest pain, shortness of breath, dyspnea on exertion, cough, abdominal pain, nausea, vomiting, diarrhea, back pain, neck pain, or any other complaints. PMD: Dr. Linares Time/Duration: < week Symptom Onset: Gradual Symptom Course: Unchanged Activities at Onset: Light Context: Home Past Medical History - Provider Review Nursing Documentation Reviewed: Yes - Infectious Disease Hx of Infectious Diseases: None - Tetanus Immunization Tetanus Immunization: Unknown - Reproductive Currently : Unknown - Past Medical History Past Medical History: No Previous - Cardiac Hx Cardiac Disorders: No Hx Hypertension: No - Pulmonary Hx Tuberculosis: No - Neurological HX Cerebrovascular Accident: No Hx Seizures: No - Hematological/Oncological Hx Cancer: No - Genitourinary/Gynecological Hx Sexually Transmitted Diseases: No - Psychiatric Hx Substance Use: No - Surgical History Hx Section: Yes Hx Orthopedic Surgery: Yes (left hip as a child) Other/Comment: L knee. fibroids - Anesthesia Hx Anesthesia: Yes Hx Anesthesia Reactions: No Hx Malignant Hyperthermia: No - Suicidal Assessment Feels Threatened In Home Enviroment: No Family/Social History - Physician Review Nursing Documentation Reviewed: Yes Family/Social History: No Known Family HX Smoking Status: Never Smoked Hx Alcohol Use: No Hx Substance Use: No Hx Substance Use Treatment: No Allergies/Home Meds Allergies/Adverse Reactions: Allergies oxcarbazepine [From Trileptal] Allergy (Intermediate, Verified 12/27/18 18:29) RASH Home Medications: Home Meds Medication Instructions Recorded Confirmed ARIPiprazole [Abilify] 10 mg PO DAILY 12/27/18 12/27/18 ARIPiprazole [Abilify] 15 mg PO DAILY 12/27/18 12/27/18 Ranitidine HCl [Sunmark Acid 150 mg PO HS 12/27/18 12/27/18 Door Hanger] Review of Systems - Physician Review All systems were reviewed & negative as marked: Yes - Review of Systems Constitutional: absent: Fevers Respiratory: absent: SOB, Cough Cardiovascular: absent: Chest Pain Gastrointestinal: absent: Abdominal Pain, Diarrhea, Nausea, Vomiting Genitourinary Female: absent: Dysuria, Urine Output Changes Musculoskeletal: absent: Back Pain, Neck Pain Skin: absent: Rash Neurological: absent: Headache, Dizziness Psychiatric: Other (Manic episode) Physical Exam - Physical Exam Narrative Physical Exam (Text): 12/27/18 10:07 Gen: VS reviewed, alert, well developed, well nourished, nontoxic, mild distress. ENT: normal pharynx. Eye: EOMI, PERRL. Neck: no JVD, supple, no adenopathy. CV: regular rate, regular rhythm, no rubs, no murmur, no gallops, S1, S2, pulses equal and strong. Pulm: no distress, clear to auscultation, no wheeze, no rhonchi, breath sounds equal, no rales. Abd: soft, nontender, no guarding, no rebound, no rigidity, normal bowel sounds. Ext: no edema. Skin: good color, no rash, no cyanosis. Psych: responds appropriately to questions, normal affect. Pressured speech. Neuro: oriented x 3, CN2-12 intact grossly, motor intact, sensation intact. Appearance: Positive for: Well-Appearing, Non-Toxic, Comfortable Pain Distress: Mild Mental Status: Positive for: Alert and Oriented X 3 Medical Decision Making ED Course and Treatment: 12/27/18 10:05 Impression: 48 year old female presents to the ED for evaluation of manic episode. Plan: -- EKG -- Labs -- Chest X-ray -- Urinalysis -- Reassess and disposition Prior Visits: Notes and results from previous visits were reviewed. Progress Notes: 12/27/18 11:13 patient is medically stable for psych eval, admit admit accepted to service of dr. bell, patient to be tx for bipolar disorder. urine result likely contaminate especially since the patient does not have irritative voiding symptoms. - RAD Interpretation Narrative RAD Interpretations (Text): 12/27/18 11:00 Chest X-ray reviewed by radiologist, shows: FINDINGS: LUNGS: The lungs are well inflated and clear. PLEURA: No pneumothorax or pleural effusion. CARDIOVASCULAR: The heart is normal in size. No aortic atherosclerotic calcifications present. OSSEOUS STRUCTURES: Within normal limits for the patient's age. VISUALIZED UPPER ABDOMEN: Normal. OTHER FINDINGS: None. IMPRESSION: No active pulmonary disease. 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 All medical record entries made by the Scribe were at my direction and personall y dictated by me. I have reviewed the chart and agree that the record accurately reflects my personal performance of the history, physical exam, medical decision making, and the department course for this patient. I have also personally directed, reviewed, and agree with the discharge instructions and disposition. Disposition/Present on Arrival - Present on Arrival Any Indicators Present on Arrival: No History of DVT/PE: No History of Uncontrolled Diabetes: No Urinary Catheter: No History Surgical Site Infection Following: None - Disposition Have Diagnosis and Disposition been Completed?: Yes Diagnosis: Bipolar disorder Disposition: HOSPITALIZED Disposition Time: 11:14 Patient Plan: Admission Patient Problems: Current Active Problems Problem Status Onset Bipolar disorder Chronic Condition: STABLE
[2018-12-27 10:49] LABS: PH,URINE 7.5 (4.7-8.0); URINE BILIRUBIN NEGATIVE (NEGATIVE); URINE BLOOD MODERATE (NEGATIVE); URINE GLUCOSE (UA) NEGATIVE (NEGATIVE); URINE LEUKOCYTE ESTERASE NEGATIVE Leu/uL (NEGATIVE); URINE PROTEIN NEGATIVE mg/dL (<30 mg/dL); URINE UROBILINOGEN 0.2 E.U./dL (<1 E.U./dL)
[2018-12-27 10:50] LABS: RBC 5.42 10^6/uL (3.5-6.1); WHITE BLOOD COUNT 6.1 10^3/uL (4.5-11.0)
[2018-12-27 10:51] LABS: HEMOGLOBIN 15.2 g/dL (12.0-16.0); LYMPH % 22.4 % (22.0-35.0); MEAN CELL VOLUME 85.2 fl (80.0-105.0); MEAN CORPUSCULAR HGB CONC 32.9 g/dl (31.0-37.0); MEAN PLATELET VOLUME 9.1 fl (7.0-11.0); RED CELL DISTRIBUTION WIDTH 14.7 % (11.5-14.5)
[2018-12-27 10:52] LABS: BASO # 0.03 K/mm3 (0.0-2.0); BASO % 0.5 % (0.0-3.0); EOS # 0.1 (0.0-0.7); EOS % 2.3 % (1.5-5.0); LYMPH # 1.4 (1.2-3.4); MONO # 0.4 (0.1-0.6); MONO % 6.6 % (1.0-6.0)
[2018-12-27 10:54] LABS: URINE APPEARANCE CLEAR (CLEAR); URINE COLOR YELLOW (YELLOW)
[2018-12-27 10:58] LABS: URINE BACTERIA MANY /hpf; URINE RBC 15 - 20 /hpf (0-2)
[2018-12-27 11:00] LABS: ACETAMINOPHEN < 10.0 ug/ml (10.0-20.0); ALB/GLOB RATIO 1.4 (1.1-1.8); ALBUMIN 4.5 g/dL (3.0-4.8); ALT/SGPT 35 U/L (7-56); AST/SGOT 34 U/L (14-36); BLOOD UREA NITROGEN 16 mg/dL (7-21); CALCIUM 9.8 mg/dL (8.4-10.5); GFR NON-AFRICAN AMERICAN > 60; SALICYLATE < 1 mg/dL (2.0-20.0)
[2018-12-27 11:10] LABS: BENZODIAZEPINES, UR NEGATIVE (NEGATIVE); OPIATES, UR NEGATIVE (NEGATIVE); PHENCYCLIDINE, UR NEGATIVE (NEGATIVE)
[2018-12-27 11:28] LABS: BARBITURATES, UR NEGATIVE (NEGATIVE)
--- NOTE | 2018-12-27 11:34 | RAD ---
Date of service: 12/27/2018 PROCEDURE: CHEST RADIOGRAPH, 1 VIEW HISTORY: medical screening COMPARISON: 04/15/2018. FINDINGS: LUNGS: The lungs are well inflated and clear. PLEURA: No pneumothorax or pleural effusion. CARDIOVASCULAR: The heart is normal in size. No aortic atherosclerotic calcifications present. OSSEOUS STRUCTURES: Within normal limits for the patient's age. VISUALIZED UPPER ABDOMEN: Normal. OTHER FINDINGS: None. IMPRESSION: No active pulmonary disease.
[2018-12-27 11:52] VITALS: O2SAT 98
--- NOTE | 2018-12-27 17:01 | PCM.BM ---
<ThereseRemy - Last Filed: 12/27/18 16:56> Treatment Plan Problems - Problems identified on initial assessmt ANXIETY Date Initiated: 12/27/18 Time Initiated: 16:57 Assessment reference: HP, NA, Other Status: Active MEDS NONADHEREMCE Date Initiated: 12/27/18 Time Initiated: 16:57 Assessment reference: HP, NA, Other Status: Active SLEEP DISTURBANCES Date Initiated: 12/27/18 Time Initiated: 17:01 Assessment reference: HP, Other Status: Active Treatment assets and liabiliti Patient Assests: cooperative, educated, insightful, motivated, ADL independent, physically healthy, good past tx response, cognitively intact Patient Liabilities: financial problems, other - Milieu Protocol Maintain good personal hygiene: daily Encourage regular showers, daily Remind patient to perform daily oral care, daily Assist patient to perform ADL's Maintain personal safety: daily Educate patient to report safety concerns to staff, daily Monitor environment for contraband/sharps Medication safety: Monitor for expected outcome, potential side effects: daily, Assess barriers to learning: daily, Assess readiness for medication education: daily Discharge/Continuing Care - Education Needs Education Needs: Patient Medication, Patient Diagnosis/Disease Process, Patient Coping Skills, Patient Anger Management skills, Patient Activities of Daily Living, Patient Uses of Medical Equipment, Patient Health Practices/Safety, Patient Personal Hygiene/Grooming - Discharge Discharge Criteria: Free of Suicidal thoughts, Free of paranoid thoughts, Free of agitation, Normal sleep pattern <Reema Persaud - Last Filed: 12/28/18 13:42> - Diagnosis (1) Bipolar disorder Status: Chronic Interventions: 12/28/18 13:42 Psychoeducation Psychopharmacology/adjustment of medications as needed/ monitoring possible side effects Monitor blood level of mood stabilizers Evaluate pt on daily basis Compliance with medications and follow up appointments Suicide and homicide risk assessment and prevention, coping strategies, safety plan Relapse prevention Reduction of symptoms Improve functional status Family involvement As outpatient: cognitive behavioral therapy <Ingris Flores - Last Filed: 12/28/18 16:05> Family Contact Family involvement: Famliy/SO not involved
--- NOTE | 2018-12-27 19:04 | CARD ---
APPROVED REPORT Date of service: 12/27/2018 EKG Measurement Heart [id number] <Conclusion> Normal sinus rhythm Normal Electrocardiogram
[2018-12-28 07:13] VITALS: RESP 20
[2018-12-28 07:58] LABS: GLUCOSE,FASTING 95 mg/dL (65-110); HDL CHOLESTEROL 58 mg/dL (29-60)
[2018-12-28 08:09] LABS: LDL CHOLESTEROL 89 mg/dL (0-129)
[2018-12-28 08:13] LABS: FREE T4 1.39 ng/dL (0.78-2.19)
[2018-12-28] MEDS ORDERED: Albuterol HFA 90 mcg/actuation (8 g) IH PRN (13:38)
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
--- NOTE | 2018-12-29 11:30 | CP.PCM.CON ---
<Juliette Fan - Last Filed: 12/29/18 11:57> History of Present Illness - History of Present Illness History of Present Illness: CONSULT NOTE FOR HOSPITALIST SERVICE- DR. 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 Medicine service was consulted for evaluation and treatment of arthritis and back pain. Pt reports she has been experiencing L hip pain and low back pain for several months that's worse when standing for prolonged periods, alleviated with rest and tylenol medication. 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 She doesn't stretch much, and has a history of arthritis in her back and L hip thats been worked up before. She has never had any surgeries or local injections. She reports numbness/tingling in both legs below the knee when standing for a long time, but denies weakness. She denies bowel/urinary incontinence. She reports tightness in her L leg causing gait disturbance. She also reports L knee pain that's been ongoing for several months. PMH: Lumbar/L hip arthritis, unspecified congenital hip disorder All: Trileptap (hives) PSH: unspecified L hip surgery as child SH: Denies ever smoking, ETOH, illicit drug use. 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 Chelly Bhatt ([facility]) Review of Systems - Review of Systems Review of Systems: per HPI Past Patient History - Infectious Disease Hx of Infectious Diseases: None - Tetanus Immunizations Tetanus Immunization: Unknown - Past Social History Smoking Status: Never Smoked - CARDIAC Hx Cardiac Disorders: No Hx Hypertension: No - PULMONARY Hx Tuberculosis: No - NEUROLOGICAL HX Cerebrovascular Accident: No Hx Seizures: No - HEENT Hx HEENT Problems: No - HEMATOLOGICAL/ONCOLOGICAL Hx Cancer: No - GENITOURINARY/GYNECOLOGICAL Hx Sexually Transmitted Disorders: No - PSYCHIATRIC Hx Psychophysiologic Disorder: No Hx Substance Use: No - SURGICAL HISTORY Hx Section: Yes Hx Orthopedic Surgery: Yes (left hip as a child) Other/Comment: L knee. fibroids - ANESTHESIA Hx Anesthesia: Yes Hx Anesthesia Reactions: No Hx Malignant Hyperthermia: No Meds Allergies/Adverse Reactions: Allergies Allergy/AdvReac Type Severity Reaction Status Date / Time oxcarbazepine Allergy Intermediate RASH Verified 12/27/18 18:29 [From Trileptal] - Medications Medications: Current Medications Acetaminophen (Tylenol 325mg Tab) 650 mg PO Q6H PRN PRN Reason: Pain, moderate (4-7) Last Admin: 12/29/18 10:46 Dose: 650 mg Albuterol (Ventolin Hfa 90 Mcg/Actuation (8 G)) 2 puff IH [id number] PRN PRN Reason: Shortness of Breath Aripiprazole (Abilify) 10 mg PO DAILY KAYE; Protocol Last Admin: 12/29/18 09:09 Dose: 10 mg Aripiprazole (Abilify) 15 mg PO 1600 KAYE; Protocol Last Admin: 12/28/18 15:21 Dose: 15 mg Clonazepam (Klonopin) 0.5 mg PO DAILY KAYE; Protocol Last Admin: 12/29/18 09:08 Dose: 0.5 mg Clonazepam (Klonopin) 1 mg PO 2300 KAYE; Protocol Last Admin: 12/28/18 22:13 Dose: 1 mg Loratadine (Claritin) 10 mg PO DAILY KAYE Last Admin: 12/29/18 09:08 Dose: 10 mg Lorazepam (Ativan) 2 mg PO Q6H PRN; Protocol PRN Reason: Agitation Zolpidem Tartrate (Ambien) 10 mg PO 2300 KAYE; Protocol Last Admin: 12/28/18 22:15 Dose: 10 mg Physical Exam - Constitutional Appears: Well, Non-toxic, No Acute Distress - Eye Exam Eye Exam: EOMI, Normal appearance - ENT Exam ENT Exam: Mucous Membranes Moist, Normal Exam - Neck Exam Neck exam: Positive for: Normal Inspection. Negative for: Meningismus - Respiratory Exam Respiratory Exam: Clear to Auscultation Bilateral, NORMAL BREATHING PATTERN - Cardiovascular Exam Cardiovascular Exam: REGULAR RHYTHM, +S1, +S2 - GI/Abdominal Exam GI & Abdominal Exam: Soft. absent: Tenderness - Extremities Exam Extremities exam: Positive for: normal inspection. Negative for: calf tenderness - Expanded Lower Extremities Exam Left Hip exam: internal rotation (pain with IR) Knee exam: swelling. absent: pain/laxity with valgus, pain/laxity with varus, posterior draw sign Lower Leg Exam: absent: Melissa's sign Neuro vacular tendon exam: absent: decreased fine/light touch, foot drop - Back Exam Back exam: muscle spasm, NORMAL INSPECTION. absent: paraspinal tenderness, vertebral tenderness - Neurological Exam Neurological exam: Alert, Oriented x3 - Expanded Neurological Exam Expanded Sensory exam: Lower Extremity 2 Point Discrimination: Normal, Lower Extremity Light Touch: Normal, Lower Extremity Pin Prick: Normal, Lower Extremity Temperature: Normal, Upper Extremity 2 Point Discrimination: Normal, Upper Extremity Light Touch: Normal, Upper Extremity Pin Prick: Normal, Upper Extr emity Temperature: Normal Neuro motor strength exam: Left Upper Extremity: 5, Right Upper Extremity: 5, Left Lower Extremity: 5, Right Lower Extremity: 4 DTR: Patellar Left: 2+, Patellar Right: 2+ - Psychiatric Exam Psychiatric exam: Normal Affect, Normal Mood - Skin Skin Exam: Dry, Intact, Warm Results - Vital Signs Recent Vital Signs: Last Vital Signs Temp 98.2 F 12/28/18 07:12 Pulse 67 12/28/18 16:00 Resp 20 12/28/18 07:12 BP 113/67 12/28/18 16:00 Pulse Ox 98 12/27/18 13:00 - Labs Result Diagrams: 12/27/18 10:30 12/27/18 10:30 Labs: Laboratory Results - last 24 hr 12/28/18 12/29/18 07:35 07:45 Urine HCG, Qual Negative RPR Nonreactive Assessment & Plan - Assessment and Plan (Free Text) Assessment: 48 y/o F with PMHX of L hip/back arthritis, previous L hip surgery as child, bipolar disorder admitted to psychiatry unit for bipolar 1 disorder. Medicine consulted for arthritis/back pain management Plan: Arthritis/Back Pain Neurovascularly intact Decreased ROM of L hip. Instructed on stretching and rest Encourage weight loss continue acetaminophen q6h prn continue physical therapy outpatient physical therapy upon discharge Bipolar disorder continue medications per primary recs Case seen, examined and discussed with attending physician, Dr. Demond Fan PGY1 <Janae Dc - Last Filed: 12/29/18 18:32> Meds - Medications Medications: Current Medications Acetaminophen (Tylenol 325mg Tab) 650 mg PO Q6H PRN PRN Reason: Pain, moderate (4-7) Last Admin: 12/29/18 10:46 Dose: 650 mg Albuterol (Ventolin Hfa 90 Mcg/Actuation (8 G)) 2 puff IH [id number] PRN PRN Reason: Shortness of Breath Aripiprazole (Abilify) 15 mg PO 1600 KAYE; Protocol Last Admin: 12/29/18 17:03 Dose: 15 mg Aripiprazole (Abilify) 15 mg PO DAILY KAYE; Protocol Clonazepam (Klonopin) 0.5 mg PO DAILY KAYE; Protocol Last Admin: 12/29/18 09:08 Dose: 0.5 mg Clonazepam (Klonopin) 1 mg PO 2300 KAYE; Protocol Last Admin: 12/28/18 22:13 Dose: 1 mg Loratadine (Claritin) 10 mg PO DAILY KAYE Last Admin: 12/29/18 09:08 Dose: 10 mg Lorazepam (Ativan) 2 mg PO Q6H PRN; Protocol PRN Reason: Agitation Zolpidem Tartrate (Ambien) 10 mg PO 2300 KAYE; Protocol Last Admin: 12/28/18 22:15 Dose: 10 mg Results - Vital Signs Recent Vital Signs: Last Vital Signs Temp 98.2 F 12/28/18 07:12 Pulse 64 12/29/18 15:27 Resp 20 12/28/18 07:12 BP 130/70 12/29/18 15:27 Pulse Ox 98 12/27/18 13:00 - Labs Result Diagrams: 12/27/18 10:30 12/27/18 10:30 Labs: Laboratory Results - last 24 hr 12/29/18 07:45 Urine HCG, Qual Negative Attending/Attestation - Attestation I have personally seen and examined this patient.: Yes I have fully participated in the care of the patient.: Yes I have reviewed all pertinent clinical information: Yes Notes (Text): 12/29/18 18:29 attending note; Patient seen and examined with resident in psychiatric floor. Patient is alert and awake. Complaining of back pain and knee pain. Denies any fevers, chills. Denies any urinary, bowel symptoms. 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 Medicine service was consulted for evaluation and treatment of arthritis and back pain. 1. chronic back pain; continue Tylenol when necessary. Physical therapy evaluation requested. 2. Left-sided varicose vein. mild swelling. Doppler ordered to rule out DVT. compression stockings ordered. 3. bipolar disorder; continue medications per psychiatrist. labs reviewed. Patient is medically stable. Please reconsult as needed. 12/29/18 18:31
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
[2018-12-30] MEDS: Naproxen 550 mg Tab PO SCH (17:21)
[2018-12-31 07:20] VITALS: BP 112/79; PULSE 67; TEMP 98.1
[2018-12-31] MEDS: Naproxen 550 mg Tab PO SCH (13:02)
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
--- NOTE | 2018-12-31 18:44 | US ---
HISTORY: Leg pain and swelling. Evaluate for DVT PHYSICIAN(S): Reed Laura MD. TECHNIQUE: Duplex sonography and color-flow Doppler with graded compression were used to evaluate the deep venous systems of both lower extremities. FINDINGS: The visualized deep venous systems of both lower extremities are sonographically normal and compressible. Normal wave forms and augmentation are seen. There is no sonographic evidence for deep venous thrombosis in the visualized segments of both lower extremities. IMPRESSION: No sonographic evidence for deep venous thrombosis in the visualized segments of both lower extremities.
== END 2018-12-31 16:50 | disposition home or self-care (01) | DRG 430 ==
LOC: ED 09:24 → ERH 11:15 → PSYC 13:43
PROVIDERS: ADMIT Psychiatry & Neurology Psychiatry; ATTEND Psychiatry & Neurology Psychiatry
DX: F31.9 Bipolar disorder, unspecified (principal); G89.29 Other chronic pain; I83.92 Asymptomatic varicose veins of left lower extremity; G47.00 Insomnia, unspecified; F41.9 Anxiety disorder, unspecified; M16.12 Unilateral primary osteoarthritis, left hip